=== PATIENT | female | born 1995 | race Caucasian/White ===

== ENCOUNTER → 2016-11-27 | Outpatient (REF) | payer OTHER | LOC: M LAB REF 16:07 | PROVIDERS: ATTEND Surgery | DX: D48.5 Neoplasm of uncertain behavior of skin (principal) ==

== ENCOUNTER → 2016-12-04 | Outpatient (CLI) | payer OTHER ==
[2016-12-04 11:28] LABS: BASO % 0.4 % (0.0-1.0); EOS # 0.1 K/mm3 (0.0-0.50); EOS % 1.4 % (0.0-3.0); LYMPH # 1.5 K/mm3 (1.5-6.5); LYMPH % 29.2 % (24.0-44.0); MEAN CORPUSCULAR HEMOGLOBIN 29.7 pg (27.0-33.0); MEAN CORPUSCULAR HGB CONC 33.3 g/dl (32.0-36.5); MEAN CORPUSCULAR VOLUME 89.3 fl (80.0-96.0); MONO # 0.3 K/mm3 (0.0-0.8); MONO % 5.5 % (0.0-5.0); NEUTROPHILS % 61.3 % (36.0-66.0); RED CELL DISTRIBUTION WIDTH 12.5 % (11.5-14.5); WHITE BLOOD COUNT 4.9 K/mm3 (4.0-10.0)
[2016-12-04 12:01] LABS: ALBUMIN 3.4 GM/DL (3.2-5.2); ALBUMIN/GLOBULIN RATIO 1.03 (1.00-1.93); ALKALINE PHOSPHATASE 38 U/L (45-117); ALT/SGPT 13 U/L (12-78); ANION GAP 4 MEQ/L (8-16); AST/SGOT 15 U/L (15-37); BILIRUBIN,TOTAL 0.4 MG/DL (0.2-1.0); BLOOD UREA NITROGEN 13 MG/DL (7-18); CALCIUM LEVEL 8.7 MG/DL (8.5-10.1); CARBON DIOXIDE LEVEL 30 MEQ/L (21-32); CHLORIDE LEVEL 106 MEQ/L (98-107); CREATININE FOR GFR 0.77 MG/DL (0.55-1.02); GLUCOSE, FASTING 106 MG/DL (70-105); POTASSIUM SERUM 3.6 MEQ/L (3.5-5.1); SODIUM LEVEL 140 MEQ/L (136-145); TOTAL PROTEIN 6.7 GM/DL (6.4-8.2)
--- NOTE | 2016-12-04 23:03 | ECGEPIP ---
Stationary ECG Study [facility] Test Date: 2016-12-04 Pat Name: BARRETT GUZMAN Department: Room: - Gender: F [place] [employer]: MICHELE : 1995 Requested By: Leann Gonzalez Order Number: [id number] Reading MD: Santo Funk Measurements Intervals [place] Rate: 72 P: -7 WA: 154 QRS: 44 QRSD: 90 T: 30 QT: 402 QTc: 441 Interpretive Statements SINUS RHYTHM WITH SINUS ARRHYTHMIA Early repolarization. No significant change compared with 12/13/2014. Electronically Signed On 12-04-2016 23:02:49 EDT by Santo Funk
== END ==
LOC: M LAB 11:00
PROVIDERS: ATTEND Physician Assistant Medical
DX: R00.2 Palpitations (principal)

== ENCOUNTER → 2017-04-01 | Outpatient (REF) | payer OTHER ==
[~2017-04-01] MED LIST: NORT1TAB PO; PRIL20CA9 PO; ZOLO25TA PO
== END ==
LOC: M LAB REF 16:44
PROVIDERS: ATTEND Physician Assistant
DX: J02.0 Streptococcal pharyngitis (principal)

== ENCOUNTER → 2017-04-17 | Outpatient (REF) | payer OTHER | LOC: M LAB REF 16:47 | PROVIDERS: ATTEND Physician Assistant Medical | DX: N30.01 Acute cystitis with hematuria (principal) ==

== ENCOUNTER 2017-07-12 11:51 | Emergency (ER) | payer OTHER ==
[~2017-07-12] VITALS: Ht 157.5 cm; Wt 57.3 kg
[2017-07-12 15:49] LABS: BASO % 0.4 % (0.0-1.0); EOS % 0.3 % (0.0-3.0); IMMATURE GRANULOCYTE % 0.3 % (0-0); LYMPH # 1.9 10^3/uL (1.5-6.5); LYMPH % 28.2 % (24.0-44.0); MEAN CORPUSCULAR HEMOGLOBIN 29.4 pg (27.0-33.0); MEAN CORPUSCULAR HGB CONC 33.3 g/dl (32.0-36.5); MEAN CORPUSCULAR VOLUME 88.3 fl (80.0-96.0); MONO # 0.4 10^3/uL (0.0-0.8); MONO % 5.9 % (0.0-5.0); NEUTROPHILS # 4.4 10^3/uL (1.8-7.7); NEUTROPHILS % 64.9 % (36.0-66.0); PLATELET COUNT, AUTOMATED 252 10^3/uL (150-450); RED CELL DISTRIBUTION WIDTH 11.7 % (11.5-14.5); WHITE BLOOD COUNT 6.8 10^3/uL (4.0-10.0)
[2017-07-12] MEDS ORDERED: ALPRAZolam 0.25 MG TAB PO ONE (16:00)
[2017-07-12 16:15] LABS: ERYTHROCYTE SEDIMENTATION RATE 13 mm/hr (0-20)
[2017-07-12 16:16] LABS: ALBUMIN 4.2 GM/DL (3.2-5.2); ALKALINE PHOSPHATASE 35 U/L (45-117); ALT/SGPT 19 U/L (12-78); ANION GAP 11 MEQ/L (8-16); AST/SGOT 12 U/L (7-37); BILIRUBIN,TOTAL 0.4 MG/DL (0.2-1.0); BLOOD UREA NITROGEN 11 MG/DL (7-18); CALCIUM LEVEL 9.6 MG/DL (8.5-10.1); CARBON DIOXIDE LEVEL 26 MEQ/L (21-32); CHLORIDE LEVEL 103 MEQ/L (98-107); CREATININE FOR GFR 0.64 MG/DL (0.55-1.02); GLOMERULAR FILTRATION RATE > 60.0 (>60); GLUCOSE, FASTING 82 MG/DL (70-105); POTASSIUM SERUM 4.2 MEQ/L (3.5-5.1); SODIUM LEVEL 140 MEQ/L (136-145); TOTAL PROTEIN 7.7 GM/DL (6.4-8.2)
[2017-07-12] MEDS ORDERED: XANA0.25 PO (16:48)
[2017-07-12] MEDS ORDERED: DIFL150T PO (16:52)
[2017-07-12] MEDS ORDERED: CEFD300CAP FT (16:52)
[2017-07-12] MEDS ORDERED: CEFD1CAP8 PO (17:27)
[2017-07-12 17:56] VITALS: BP 123/89
--- NOTE | 2017-07-13 07:13 | ECGEPIP ---
Stationary ECG Study [facility] - ED Test Date: 2017-07-12 Pat Name: BARRETT GUZMAN Department: Room: - Gender: F Kitchen Clerk: KIAH : 1995 Requested By: Matthew Mccarty Order Number: [id number] Reading MD: Matthew Pereira Measurements Intervals [place] Rate: 80 P: 62 UT: 152 QRS: 8 QRSD: 89 T: 34 QT: 354 QTc: 409 Interpretive Statements SINUS RHYTHM WITH SINUS ARRHYTHMIA BENIGN EARLY REPOLARIZATION SIMILAR TO 07/09/17 Electronically Signed On 07-13-2017 7:13:48 EST by Matthew Pereira
[2017-07-15 10:36] LABS: VITAMIN B12 LEVEL 638 PG/ML (247-911)
[2017-07-16 00:06] LABS: Lyme Disease IgG/IgM Antibodie <0.91 ISR (0.00-0.90); Lyme Disease IgM Ab Quantitati <0.80 index (0.00-0.79)
== END 2017-07-12 18:01 | disposition home or self-care (01) ==
LOC: M ED 11:51
DX: F41.9 Anxiety disorder, unspecified (principal); H66.93 Otitis media, unspecified, bilateral; G43.909 Migraine, unspecified, not intractable, without status migrainosus

== ENCOUNTER → 2017-07-19 | Outpatient (CLI) | payer OTHER ==
[~2017-07-19] MED LIST changes: +CEFD1CAP8 PO; +CEFD300CAP FT; +DIFL150T PO; +XANA0.25 PO
== END ==
LOC: M LAB 12:19
PROVIDERS: ATTEND Psychiatry & Neurology Neurology
DX: R51 Headache (principal)

== ENCOUNTER 2017-08-12 11:07 | Emergency (ER) | payer OTHER ==
[~2017-08-12] VITALS: Ht 157.5 cm; Wt 58.2 kg
[2017-08-12 11:08] VITALS: BP 142/93
[2017-08-12] MEDS ORDERED: NORTREL (11:21)
== END 2017-08-12 12:37 | disposition left against medical advice (07) ==
LOC: M ED 11:07
DX: Z53.29 Procedure and treatment not carried out because of patient's decision for other reasons (principal)

== ENCOUNTER 2018-01-24 14:03 | Emergency (ER) | payer OTHER ==
[2018-01-24] MEDS: NS 1,000 ML IV (19:00)
[2018-01-24 20:08] LABS: BASO % 0.5 % (0.0-1.0); EOS # 0.1 10^3/uL (0.0-0.50); EOS % 0.8 % (0.0-3.0); HEMATOCRIT 39.7 % (36.0-47.0); HEMOGLOBIN 13.2 g/dl (12.0-15.5); IMMATURE GRANULOCYTE % 0.3 % (0-3.0); LYMPH # 2.5 10^3/uL (1.5-6.5); LYMPH % 41.3 % (24.0-44.0); MEAN CORPUSCULAR HGB CONC 33.2 g/dl (32.0-36.5); MEAN CORPUSCULAR VOLUME 87.3 fl (80.0-96.0); MONO # 0.3 10^3/uL (0.0-0.8); MONO % 4.9 % (0.0-5.0); NEUTROPHILS # 3.1 10^3/uL (1.8-7.7); NEUTROPHILS % 52.2 % (36.0-66.0); PLATELET COUNT, AUTOMATED 221 10^3/uL (150-450); RED BLOOD COUNT 4.55 10^6/uL (4.00-5.40); WHITE BLOOD COUNT 5.9 10^3/uL (4.0-10.0)
[2018-01-24 20:32] LABS: CONTROL LINE HCG INT CTR LINE PRESENT; HCG, SERUM QUALITATIVE NEGATIVE (NEGATIVE)
[2018-01-24 20:41] LABS: ALBUMIN 4.1 GM/DL (3.2-5.2); ALBUMIN/GLOBULIN RATIO 1.11 (1.00-1.93); ALKALINE PHOSPHATASE 31 U/L (45-117); ALT/SGPT 16 U/L (12-78); ANION GAP 8 MEQ/L (8-16); AST/SGOT 14 U/L (7-37); BILIRUBIN,DIRECT 0.1 MG/DL (0.0-0.2); BILIRUBIN,TOTAL 0.4 MG/DL (0.2-1.0); BLOOD UREA NITROGEN 10 MG/DL (7-18); C REACTIVE PROTEIN QUANTITATIV 0.31 MG/DL (0.00-0.30); CALCIUM LEVEL 8.8 MG/DL (8.5-10.1); CARBON DIOXIDE LEVEL 26 MEQ/L (21-32); CHLORIDE LEVEL 107 MEQ/L (98-107); CPK CREATINE PHOSPHOKINASE 75 U/L (26-192); CREATININE FOR GFR 0.65 MG/DL (0.55-1.30); GLOMERULAR FILTRATION RATE > 60.0 (>60); GLUCOSE, FASTING 91 MG/DL (70-100); LIPASE 114 U/L (73-393); POTASSIUM SERUM 3.6 MEQ/L (3.5-5.1); SODIUM LEVEL 141 MEQ/L (136-145); TOTAL PROTEIN 7.8 GM/DL (6.4-8.2); TROPONIN I < 0.02 NG/ML (< 0.10)
[2018-01-24 20:47] LABS: CK-MB VALUE MASS < 1.0 NG/ML (<3.6); FREE T4 1.22 NG/DL (0.76-1.46); MB/CK RELATIVE INDEX 1.33 (< OR =4)
== END 2018-01-24 21:31 | disposition home or self-care (01) ==
LOC: M ED 14:03
DX: F41.9 Anxiety disorder, unspecified (principal); K21.9 Gastro-esophageal reflux disease without esophagitis; Z83.49 Family history of other endocrine, nutritional and metabolic diseases; Z79.3 Long term (current) use of hormonal contraceptives; Z79.899 Other long term (current) drug therapy; Z86.69 Personal history of other diseases of the nervous system and sense organs
CPT/HCPCS: 93005

== ENCOUNTER 2018-09-09 12:33 | Emergency (ER) | payer OTHER ==
[~2018-09-09] VITALS: Ht 157.5 cm; Wt 56.8 kg
[~2018-09-09 12:33] MED LIST changes: +NORTREL; +NUVAMIS2; +RANI150T
[2018-09-09] MEDS ORDERED: ALPR0.25 (12:49)
[2018-09-09] MEDS ORDERED: SERT25TA88 PO (12:49)
[2018-09-09 13:19] LABS: BASO % 0.2 % (0.0-1.0); EOS # 0.1 10^3/uL (0.0-0.50); EOS % 0.9 % (0.0-3.0); HEMATOCRIT 37.5 % (36.0-47.0); HEMOGLOBIN 12.5 g/dl (12.0-15.5); LYMPH # 2.1 10^3/uL (1.5-6.5); LYMPH % 38.8 % (24.0-44.0); MEAN CORPUSCULAR HEMOGLOBIN 29.2 pg (27.0-33.0); MEAN CORPUSCULAR HGB CONC 33.3 g/dl (32.0-36.5); MEAN CORPUSCULAR VOLUME 87.6 fl (80.0-96.0); MONO # 0.4 10^3/uL (0.0-0.8); MONO % 6.6 % (0.0-5.0); NEUTROPHILS # 2.8 10^3/uL (1.8-7.7); NEUTROPHILS % 53.3 % (36.0-66.0); PLATELET COUNT, AUTOMATED 221 10^3/uL (150-450); RED BLOOD COUNT 4.28 10^6/uL (4.00-5.40); WHITE BLOOD COUNT 5.3 10^3/uL (4.0-10.0)
[2018-09-09 13:42] LABS: ALT/SGPT 15 U/L (12-78); BILIRUBIN,TOTAL 0.4 MG/DL (0.2-1.0); BLOOD UREA NITROGEN 14 MG/DL (7-18); CALCIUM LEVEL 9.2 MG/DL (8.5-10.1); CARBON DIOXIDE LEVEL 28 MEQ/L (21-32); CHLORIDE LEVEL 105 MEQ/L (98-107); CREATININE FOR GFR 0.62 MG/DL (0.55-1.30); GLOMERULAR FILTRATION RATE > 60.0 (>60); GLUCOSE, FASTING 93 MG/DL (70-100); POTASSIUM SERUM 3.9 MEQ/L (3.5-5.1); SODIUM LEVEL 138 MEQ/L (136-145)
[2018-09-09 13:59] VITALS: BP 118/71
[2018-09-09 14:14] LABS: HCG, SERUM QUALITATIVE NEGATIVE (NEGATIVE)
[2018-09-10 09:43] LABS: HEPATITIS B SURFACE ANTIBODY NEGATIVE (POSITIVE)
[2018-09-10 09:54] LABS: HEPATITIS B SURFACE ANTIGEN NEGATIVE (NEGATIVE)
[2018-09-10 10:22] LABS: HEPATITIS C VIRUS ABY INDEX 0.1 INDEX (<0.8)
== END 2018-09-09 14:32 | disposition home or self-care (01) ==
LOC: M ED 12:33
DX: Z77.21 Contact with and (suspected) exposure to potentially hazardous body fluids (principal); K21.9 Gastro-esophageal reflux disease without esophagitis; F41.9 Anxiety disorder, unspecified; G43.909 Migraine, unspecified, not intractable, without status migrainosus; Z79.899 Other long term (current) drug therapy

== ENCOUNTER → 2018-09-26 | Outpatient (REF) | payer OTHER ==
[~2018-09-26] MED LIST changes: +ALPR0.25; +SERT25TA88 PO
== END ==
LOC: M LAB REF 15:54
PROVIDERS: ATTEND Physician Assistant
DX: N39.0 Urinary tract infection, site not specified (principal)

== ENCOUNTER → 2018-10-29 | Outpatient (REF) | payer OTHER ==
[2018-10-29 22:41] LABS: CHLAMYDIA DNA AMPLIFICATION NEGATIVE (NEGATIVE); GC DNA AMPLIFICATION NEGATIVE (NEGATIVE)
== END ==
LOC: M LAB REF 16:28
PROVIDERS: ATTEND Physician Assistant
DX: R30.0 Dysuria (principal)

== ENCOUNTER → 2018-11-13 | Outpatient (CLI) | payer OTHER ==
--- NOTE | 2018-11-13 17:59 | REP ---
Pelvic ultrasound, stat request: The studies performed transabdominal, endovaginal Doppler ultrasound assessment: Comparison is 01/10/2018. The bladder is adequately distended. The uterus is anteverted and normal size measuring 7.2 x 2.7 x 4.0 cm. The endometrium stripe is not thickened measuring up to 6.5 mm. Right ovary: The right ovary measures 2.3 x 1.4-0.6 cm and is normal size. There is a 0.7 cm right ovarian follicle with an echogenic wall, not present previously, however the echogenic wall is somewhat unusual for follicle. Therefore, I would recommend a follow-up pelvic ultrasound after two menstrual cycles to determine whether this is persistent or transient. There is vascular flow in the right ovary with the Doppler resistive index of the parenchymal arteries measuring 0.53. Left ovary: The left ovary measures 2.8 x 1.9 x 2.6 cm and is normal size. There is a para ovarian cyst measuring 0.8 x 0.6 x 0.9 cm. There is no free fluid in the pelvis. Impression: There is vascular flow in both ovaries. There is a right ovarian 0.7 cm cyst with an echogenic wall of uncertain significance. Therefore, I would recommend follow-up pelvic ultrasound after two menstrual cycles to determine whether this is transient or persistent. There is a 0.9 cm left adnexal paraovarian cyst. Electronically Signed by Danny Dhaliwal MD 11/13/2018 05:51 P
[2018-11-13 19:03] LABS: BLOOD UREA NITROGEN 12 MG/DL (7-18); CALCIUM LEVEL 8.6 MG/DL (8.5-10.1); CARBON DIOXIDE LEVEL 25 MEQ/L (21-32); CHLORIDE LEVEL 105 MEQ/L (98-107); CREATININE FOR GFR 0.66 MG/DL (0.55-1.30); GLOMERULAR FILTRATION RATE > 60.0 (>60); GLUCOSE, FASTING 74 MG/DL (70-100); POTASSIUM SERUM 3.7 MEQ/L (3.5-5.1); SODIUM LEVEL 137 MEQ/L (136-145)
[2018-11-13 19:35] LABS: BASO % 0.3 % (0.0-1.0); EOS # 0.1 10^3/uL (0.0-0.50); EOS % 1.1 % (0.0-3.0); HEMATOCRIT 37.3 % (36.0-47.0); HEMOGLOBIN 12.2 g/dl (12.0-15.5); LYMPH # 2.2 10^3/uL (1.5-6.5); LYMPH % 34.5 % (24.0-44.0); MEAN CORPUSCULAR HEMOGLOBIN 29.5 pg (27.0-33.0); MEAN CORPUSCULAR HGB CONC 32.7 g/dl (32.0-36.5); MEAN CORPUSCULAR VOLUME 90.1 fl (80.0-96.0); MONO # 0.4 10^3/uL (0.0-0.8); MONO % 5.4 % (0.0-5.0); NEUTROPHILS # 3.8 10^3/uL (1.8-7.7); NEUTROPHILS % 58.5 % (36.0-66.0); PLATELET COUNT, AUTOMATED 241 10^3/uL (150-450); RED BLOOD COUNT 4.14 10^6/uL (4.00-5.40); WHITE BLOOD COUNT 6.4 10^3/uL (4.0-10.0)
== END ==
LOC: M RAD 16:43
PROVIDERS: ATTEND Physician Assistant
DX: N83.201 Unspecified ovarian cyst, right side (principal); N83.292 Other ovarian cyst, left side

== ENCOUNTER → 2018-11-13 | Outpatient (REF) | payer OTHER | LOC: M LAB REF 19:11 | PROVIDERS: ATTEND Physician Assistant | DX: R10.32 Left lower quadrant pain (principal) ==

== ENCOUNTER → 2018-11-26 | Outpatient (REF) | payer OTHER ==
[2018-12-02 14:53] LABS: HPV HYBRID CAPTURE II Negative (Negative)
== END ==
LOC: M LAB REF 17:20
PROVIDERS: ATTEND Advanced Practice Midwife
DX: Z12.4 Encounter for screening for malignant neoplasm of cervix (principal); R87.610 Atypical squamous cells of undetermined significance on cytologic smear of cervix (ASC-US)

== ENCOUNTER → 2019-01-23 | Outpatient (REF) | LOC: M LAB 08:54 | PROVIDERS: ATTEND Nurse Practitioner Adult Health | DX: Z11.59 Encounter for screening for other viral diseases (principal) ==

== ENCOUNTER 2019-05-12 07:03 | Emergency (ER) | payer OTHER ==
[~2019-05-12] VITALS: Ht 157.5 cm; Wt 56.8 kg
[2019-05-12] MEDS ORDERED: LIDOCAINE 2% W/ EPINEPHRINE 1.7 ML DENTAL INJ SM ONE (07:30)
[2019-05-12] MEDS ORDERED: BENZOCAINE 20% GEL 9GM TUBE (ANBESOL MAX STRENGTH) TOP ONE (07:30)
[2019-05-12] MEDS ORDERED: AUGM875T28 PO (08:27)
[2019-05-12 08:38] VITALS: BP 133/72
== END 2019-05-12 08:50 | disposition home or self-care (01) ==
LOC: M ED 07:03
DX: K04.7 Periapical abscess without sinus (principal); G93.5 Compression of brain; Z79.3 Long term (current) use of hormonal contraceptives

== ENCOUNTER → 2020-03-02 | Outpatient (REF) | payer OTHER ==
[~2020-03-02] MED LIST changes: +AUGM875T28 PO; +SERT25TA21 PO; -SERT25TA88 PO
== END ==
LOC: M SFHCWAGY 10:13
PROVIDERS: ATTEND Advanced Practice Midwife
DX: Z12.4 Encounter for screening for malignant neoplasm of cervix (principal); R87.610 Atypical squamous cells of undetermined significance on cytologic smear of cervix (ASC-US)
CPT/HCPCS: 87624; G0123

== ENCOUNTER → 2020-08-15 | Outpatient (REF) | payer OTHER | LOC: M LAB REF 20:25 | PROVIDERS: ATTEND Advanced Practice Midwife | DX: R30.0 Dysuria (principal) ==

== ENCOUNTER → 2020-12-01 | Outpatient (CLI) | payer OTHER ==
--- NOTE | 2020-12-01 09:20 | REP ---
INDICATION: N63.0 LT BREAST NODULE. COMPARISON: None TECHNIQUE: Real-time sonographic evaluation of left breast performed. FINDINGS: At the site of the reported palpable abnormality, 12-1 o'clock, there is dense fibroglandular tissue. No discrete cystic or solid nodule is seen. IMPRESSION: BIRADS/ACR category 1, negative ultrasound left breast. No discrete cystic or solid nodule at the site of the reported palpable abnormality 12-1 o'clock left breast. RECOMMENDATION: Clinical correlation and follow-up recommended. A negative ultrasound should not deter biopsy if there is a clinically suspicious palpable mass present. <Electronically signed by Danny Liu > 12/01/20 0914
== END ==
LOC: M WHC 07:23
PROVIDERS: ATTEND Advanced Practice Midwife
DX: R92.2 Inconclusive mammogram (principal)

== ENCOUNTER → 2021-02-24 | Outpatient (REF) | LOC: M LABSMTC 13:45 | PROVIDERS: ATTEND Pediatrics | DX: Z20.822 Contact with and (suspected) exposure to COVID-19 (principal) ==

== ENCOUNTER → 2021-03-23 | Outpatient (REF) | payer OTHER ==
[2021-03-23 17:01] LABS: FREE T4 0.99 NG/DL (0.76-1.46); THYROID STIMULATING HORMONE 2.29 uIU/ML (0.358-3.740)
== END ==
LOC: M SFHCCLAY 09:25
PROVIDERS: ATTEND Family Medicine
DX: Z00.00 Encounter for general adult medical examination without abnormal findings (principal); Z83.49 Family history of other endocrine, nutritional and metabolic diseases

== ENCOUNTER → 2021-10-02 | Outpatient (REF) ==
[~2021-10-02] MED LIST changes: -CEFD1CAP8 PO; +CEFD300C41 PO
== END ==
LOC: M LABSMTC 11:18
PROVIDERS: ATTEND Family Medicine
DX: Z11.52 Encounter for screening for COVID-19 (principal); Z20.822 Contact with and (suspected) exposure to COVID-19

== ENCOUNTER → 2021-11-13 | Outpatient (REF) | LOC: M EMP 12:19 | PROVIDERS: ATTEND Family Medicine | DX: Z20.822 Contact with and (suspected) exposure to COVID-19 (principal) ==

== ENCOUNTER → 2021-11-17 | Outpatient (REF) | LOC: M EMP 13:29 | PROVIDERS: ATTEND Family Medicine | DX: Z20.822 Contact with and (suspected) exposure to COVID-19 (principal) ==

== ENCOUNTER → 2022-03-20 | Outpatient (REF) | payer BC ==
[2022-03-20 16:05] LABS: MEAN CORPUSCULAR HEMOGLOBIN 28.6 pg (27.0-33.0); MEAN CORPUSCULAR HGB CONC 32.5 g/dl (32.0-36.5); MEAN CORPUSCULAR VOLUME 88.1 fl (80.0-96.0); PLATELET COUNT, AUTOMATED 417 10^3/uL (150-450); RED BLOOD COUNT 4.54 10^6/uL (4.00-5.40); WHITE BLOOD COUNT 10.2 10^3/uL (4.0-10.0)
[2022-03-20 16:54] LABS: ALBUMIN 3.1 GM/DL (3.2-5.2); ALT/SGPT 34 U/L (12-78); BILIRUBIN,TOTAL 0.2 MG/DL (0.2-1.0); BLOOD UREA NITROGEN 8 MG/DL (7-18); CALCIUM LEVEL 9.1 MG/DL (8.5-10.1); CARBON DIOXIDE LEVEL 26 MEQ/L (21-32); CHLORIDE LEVEL 108 MEQ/L (98-107); GLOMERULAR FILTRATION RATE > 60.0 (>60); GLUCOSE, FASTING 118 MG/DL (70-100); POTASSIUM SERUM 3.8 MEQ/L (3.5-5.1); SODIUM LEVEL 141 MEQ/L (136-145); TOTAL PROTEIN 6.6 GM/DL (6.4-8.2)
== END ==
LOC: M SFHCCLAY 10:43
PROVIDERS: ATTEND Nurse Practitioner Family
DX: K51.00 Ulcerative (chronic) pancolitis without complications (principal); E87.6 Hypokalemia

== ENCOUNTER → 2022-06-27 | Outpatient (CLI) | payer BC ==
[2022-06-27 16:19] LABS: HEMATOCRIT 38.3 % (36.0-47.0); HEMOGLOBIN 12.8 g/dl (12.0-15.5); MEAN CORPUSCULAR HEMOGLOBIN 29.6 pg (27.0-33.0); MEAN CORPUSCULAR HGB CONC 33.4 g/dl (32.0-36.5); MEAN CORPUSCULAR VOLUME 88.5 fl (80.0-96.0); PLATELET COUNT, AUTOMATED 232 10^3/uL (150-450); RED BLOOD COUNT 4.33 10^6/uL (4.00-5.40)
[2022-06-27 17:43] LABS: GC DNA AMPLIFICATION NEGATIVE (NEGATIVE)
[2022-06-27 19:46] LABS: HEPATITIS B SURFACE ANTIGEN NEGATIVE (NEGATIVE); HEPATITIS C VIRUS ABY INDEX < 0.0 INDEX (<0.8)
== END ==
LOC: M PLALAB 13:58
PROVIDERS: ATTEND Advanced Practice Midwife
DX: O99.341 Other mental disorders complicating pregnancy, first trimester (principal)

== ENCOUNTER → 2022-07-04 | Outpatient (CLI) | payer BC | LOC: M PLALAB 09:53 | PROVIDERS: ATTEND Advanced Practice Midwife | DX: Z34.80 Encounter for supervision of other normal pregnancy, unspecified trimester (principal); Z3A.00 Weeks of gestation of pregnancy not specified ==

== ENCOUNTER → 2022-07-19 | Outpatient (CLI) | payer BC | LOC: M WHC 13:06 | PROVIDERS: ATTEND Advanced Practice Midwife | DX: O20.0 Threatened abortion (principal); Z3A.13 13 weeks gestation of pregnancy ==

== ENCOUNTER → 2022-08-22 | Outpatient (CLI) | payer BC | LOC: M PLALAB 14:44 | PROVIDERS: ATTEND Advanced Practice Midwife | DX: Z36.8A Encounter for antenatal screening for other genetic defects (principal) ==

== ENCOUNTER → 2022-09-05 | Outpatient (CLI) | payer BC | LOC: M RAD 09:15 | PROVIDERS: ATTEND Advanced Practice Midwife | DX: O99.342 Other mental disorders complicating pregnancy, second trimester (principal) ==

== ENCOUNTER → 2022-10-03 | Outpatient (REF) | payer BC ==
[2022-10-03 18:18] LABS: ALBUMIN 2.7 G/DL (3.2-5.2); ALKALINE PHOSPHATASE 45 U/L (46-116); ALT/SGPT 16 U/L (7.0-40); AST/SGOT 17 U/L (<34); BILIRUBIN,TOTAL 0.3 MG/DL (0.3-1.2); BLOOD UREA NITROGEN 8 MG/DL (9-23); CALCIUM LEVEL 8.5 MG/DL (8.5-10.1); CARBON DIOXIDE LEVEL 24 MMOL/L (20-31); CHLORIDE LEVEL 106 MMOL/L (98-107); CREATININE FOR GFR 0.48 MG/DL (0.55-1.30); GLOMERULAR FILTRATION RATE > 60.0 (>60); GLUCOSE, FASTING 85 MG/DL (60-100); SODIUM LEVEL 138 MMOL/L (136-145); TOTAL PROTEIN 5.8 G/DL (5.7-8.2)
== END ==
LOC: M SFHCCLAY 10:40
PROVIDERS: ATTEND Nurse Practitioner Family
DX: R74.8 Abnormal levels of other serum enzymes (principal)

== ENCOUNTER → 2022-10-17 | Outpatient (CLI) | payer BC ==
[2022-10-17 15:30] LABS: HEMATOCRIT 33.8 % (36.0-47.0); HEMOGLOBIN 10.8 g/dl (12.0-15.5); MEAN CORPUSCULAR VOLUME 93.9 fl (80.0-96.0); PLATELET COUNT, AUTOMATED 218 10^3/uL (150-450)
== END ==
LOC: M PLALAB 11:12
PROVIDERS: ATTEND Advanced Practice Midwife
DX: O99.342 Other mental disorders complicating pregnancy, second trimester (principal)

== ENCOUNTER 2022-11-19 17:55 | Outpatient (CLI) | payer BC ==
[~2022-11-19] VITALS: Ht 154.9 cm; Wt 73.4 kg
[2022-11-19] MEDS ORDERED: FOLI400T13 PO (18:14)
[2022-11-19] MEDS ORDERED: PRENTAB9 PO (18:14)
[2022-11-19] MEDS ORDERED: MAGN300C PO (18:14)
[2022-11-19] MEDS ORDERED: HOME MED LIST COMPLETE! XX SCH (18:15)
[2022-11-19 18:20] VITALS: BP 121/79
[2022-11-19 19:07] LABS: APPEARANCE, URINE HAZY (CLEAR); BACTERIA, URINE AUTO 1+ (NEGATIVE); BILIRUBIN, URINE AUTO NEGATIVE (NEGATIVE); BLOOD, URINE BLOOD NEGATIVE (NEGATIVE); COLOR, URINE YELLOW (YELLOW); GLUCOSE, URINE (UA) AUTO NEGATIVE (NEGATIVE); KETONE, URINE AUTO NEGATIVE (NEGATIVE); LEUKOCYTE ESTERASE, URINE AUTO 1+ (NEGATIVE); NITRITE, URINE AUTO NEGATIVE (NEGATIVE); PROTEIN, URINE AUTO NEGATIVE (NEGATIVE); RBC, URINE AUTO 1 /HPF (0-3); SPECIFIC GRAVITY URINE AUTO 1.011 (1.002-1.035); SQUAMOUS EPITHELIAL CELL UR AU 1 /HPF (0-6); UROBILINOGEN, URINE AUTO 0.2 mg/dL (0.0-2.0); WBC, URINE AUTO 2 /HPF (0-3)
[2022-11-19] MEDS ORDERED: FLUCONAZOLE 50MG TABLET PO ONE (20:20)
[2022-11-19] MEDS ORDERED: METR0.759 PV (20:24)
[2022-11-19 20:28] VITALS: BP 118/61
== END 2022-11-19 20:24 | disposition home or self-care (01) ==
LOC: M LDO 17:55
PROVIDERS: ATTEND Advanced Practice Midwife
DX: O23.593 Infection of other part of genital tract in pregnancy, third trimester (principal); B37.9 Candidiasis, unspecified; O47.03 False labor before 37 completed weeks of gestation, third trimester; Z3A.30 30 weeks gestation of pregnancy
CPT/HCPCS: 59025; 76815; 76817; 76820; 81001; 87070; 87086; G0463

== ENCOUNTER → 2023-01-03 | Outpatient (REF) | payer BC ==
[~2023-01-03] MED LIST changes: +ETON1VAG7; +FOLI400T13 PO; +MAGN300C PO; +METR0.759 PV; -NUVAMIS2; +PRENTAB9 PO
== END ==
LOC: M SFHCWAGY 16:59
PROVIDERS: ATTEND Obstetrics & Gynecology
DX: Z34.03 Encounter for supervision of normal first pregnancy, third trimester (principal)

== ENCOUNTER 2023-01-26 20:47 | Inpatient (IN) | payer BC ==
[~2023-01-26] VITALS: Ht 154.9 cm; Wt 82.0 kg
[2023-01-26 21:04] VITALS: BP 126/78
[2023-01-26] MEDS ORDERED: HOME MED LIST COMPLETE! XX SCH (21:15)
[2023-01-26] MEDS ORDERED: LACTATED RINGER'S 1000 ML IV STA (21:49)
[2023-01-26] MEDS ORDERED: METHYLERGONOVINE MALEATE 0.2MG/ML 1ML VIAL IM PRN (21:50)
[2023-01-26] MEDS ORDERED: CARBOPROST TROMETHAMINE 250 MCG/ML AMP IM PRN (21:50)
[2023-01-26] MEDS ORDERED: LIDOCAINE 1% MDV 20ML VIAL INFIL PRN (21:50)
[2023-01-26] MEDS ORDERED: OXYTOCIN DRIP 30 UNITS in IV 1 EA IV PRN (21:50)
[2023-01-26] MEDS ORDERED: OXYTOCIN INJ 10UNITS/ML 1ML VIAL IM PRN (21:50)
[2023-01-26] MEDS ORDERED: TRANEXAMIC ACID INJection 1,000 MG in NS 100 ML IV PRN (21:50)
[2023-01-26] MEDS: miSOPROStol 50MCG 1/2 TABLET PO SCH (23:10)
[2023-01-26 23:14] VITALS: BP 122/87
[2023-01-26 23:19] LABS: HEMATOCRIT 38.5 % (36.0-47.0); HEMOGLOBIN 12.5 g/dl (12.0-15.5); MEAN CORPUSCULAR HEMOGLOBIN 29.2 pg (27.0-33.0); MEAN CORPUSCULAR HGB CONC 32.5 g/dl (32.0-36.5); PLATELET COUNT, AUTOMATED 173 10^3/uL (150-450); RED BLOOD COUNT 4.28 10^6/uL (4.00-5.40); WHITE BLOOD COUNT 10.2 10^3/uL (4.0-10.0)
[2023-01-27] VITALS (58 sets, daily range): BP systolic 95–146; BP diastolic 53–90
[2023-01-27 00:18] LABS: HIV 1&2 SCREEN NEGATIVE (NEGATIVE)
[2023-01-27] MEDS: miSOPROStol 50MCG 1/2 TABLET PO SCH (04:19)
[2023-01-27] MEDS ORDERED: PROMETHAZINE 25MG/ML 1ML VIAL IV ONE (05:00)
[2023-01-27] MEDS ORDERED: MORPHINE 10 MG/ML 1ML VIAL SC ONE (05:30)
[2023-01-27] MEDS ORDERED: MORPHINE 4 MG/ML 1ML VIAL IV ONE (05:30)
[2023-01-27] MEDS ORDERED: FENTANYL/ROPIVACAINE/NACL BAG 100 ML EPIDURAL SCH (11:10)
[2023-01-27] MEDS ORDERED: LR 500 ML IV PRN (11:10)
[2023-01-27] MEDS ORDERED: diphenhydrAMINE 50MG/ML VIAL IV PRN (11:10)
[2023-01-27] MEDS ORDERED: EPIDURAL/PCA KEYS XX PRN (11:10)
[2023-01-27] MEDS ORDERED: ONDANSETRON 4MG 2ML VIAL IV PRN (11:10)
[2023-01-27] MEDS ORDERED: ePHEDrine SULFATE 25 MG/5 ML(5MG/ML) SYRINGE IVP PRN (11:10)
[2023-01-27] MEDS ORDERED: NALOXONE INJ 0.4MG/1ML VIAL IV PRN (11:10)
[2023-01-27] MEDS ORDERED: OXYTOCIN DRIP 30 UNITS in IV 1 EA IV SCH (12:05)
[2023-01-27] MEDS ORDERED: LR 1,000 ML IV SCH (12:05)
[2023-01-27] MEDS ORDERED: IBUPROFEN 600MG TAB PO PRN (20:00)
[2023-01-27] MEDS ORDERED: METHYLERGONOVINE MALEATE 0.2 MG TAB PO PRN (20:00)
[2023-01-27] MEDS ORDERED: ACETAMINOPHEN TAB 650MG DOSE (2X325MG) PO PRN (20:00)
[2023-01-27] MEDS ORDERED: ANUSOL HC CREAM 30GM TOP PRN (20:00)
[2023-01-27] MEDS ORDERED: AMPICILLIN SOD/SULBACTAM SOD 3 GM in D5W MINI-BAG PLUS 100 ML IV ONE (20:00)
[2023-01-27] MEDS ORDERED: RHOGAM 300MCG (1500IU) INJ IM SCH (20:00)
[2023-01-27] MEDS ORDERED: MOM 30ML SUSPENSION UDC PO PRN (20:00)
[2023-01-27] MEDS ORDERED: DIBUCAINE 1% OINTMENT 30GM TOP PRN (20:00)
[2023-01-27] MEDS ORDERED: DOCUSATE SODIUM 100MG CAPSULE PO PRN (20:00)
[2023-01-28] MEDS: IBUPROFEN 800 MG TAB PO PRN ×2 (02:28→15:52)
[2023-01-28 06:14] VITALS: BP 132/68
[2023-01-28 06:29] LABS: HEMOGLOBIN 10.7 g/dl (12.0-15.5); MEAN CORPUSCULAR HEMOGLOBIN 29.6 pg (27.0-33.0); MEAN CORPUSCULAR HGB CONC 32.4 g/dl (32.0-36.5); MEAN CORPUSCULAR VOLUME 91.4 fl (80.0-96.0); PLATELET COUNT, AUTOMATED 133 10^3/uL (150-450); RED BLOOD COUNT 3.61 10^6/uL (4.00-5.40); WHITE BLOOD COUNT 14.2 10^3/uL (4.0-10.0)
[2023-01-28] MEDS: PRENATAL VITAMINS CHEWABLE TABLET PO SCH (08:47)
[2023-01-28] MEDS: ACETAMINOPHEN 500 MG TAB PO PRN ×2 (08:48→20:55)
[2023-01-28 18:00] VITALS: BP 124/86
[2023-01-29] MEDS: IBUPROFEN 800 MG TAB PO PRN (04:11)
[2023-01-29 06:00] VITALS: BP 127/83
[2023-01-29] MEDS: PRENATAL VITAMINS CHEWABLE TABLET PO SCH (08:53)
[2023-01-29] MEDS: ACETAMINOPHEN 500 MG TAB PO PRN (08:57)
[2023-01-29] MEDS ORDERED: MEASLES,MUMPS,RUBELLA VACCINE INJ (MMR-II) SC.IMMUN ONE (09:00)
[2023-01-29] MEDS ORDERED: ACET-683 PO (09:41)
[2023-01-29] MEDS ORDERED: COLA100C5 PO (09:41)
[2023-01-29] MEDS ORDERED: IBUP-1022 PO (09:41)
== END 2023-01-29 13:15 | disposition home or self-care (01) | DRG 560 ==
LOC: M LDO 20:47 → M LDI 21:52 → M OBS 01-27 22:39
PROVIDERS: ADMIT Advanced Practice Midwife; ATTEND Advanced Practice Midwife
PROC: 3E033VJ Introduction of Other Hormone into Peripheral Vein, Percutaneous Approach (ICD-10-PCS; 2023-01-26)
PROC: 10E0XZZ Delivery of Products of Conception, External Approach (ICD-10-PCS; principal; 2023-01-27)
PROC: 0KQM0ZZ Repair Perineum Muscle, Open Approach (ICD-10-PCS; 2023-01-27)
PROC: 10907ZC Drainage of Amniotic Fluid, Therapeutic from Products of Conception, Via Natural or Artificial Opening (ICD-10-PCS; 2023-01-27)
DX: O99.344 Other mental disorders complicating childbirth (principal); F41.9 Anxiety disorder, unspecified; Z3A.39 39 weeks gestation of pregnancy; Z79.899 Other long term (current) drug therapy; O70.1 Second degree perineal laceration during delivery; Z37.0 Single live birth

== ENCOUNTER → 2023-04-26 | Outpatient (CLI) | payer BC ==
[~2023-04-26] MED LIST changes: +ACET-683 PO; +COLA100C5 PO; +IBUP-1022 PO
== END ==
LOC: M WHC 09:05
PROVIDERS: ATTEND Advanced Practice Midwife
DX: R10.13 Epigastric pain (principal)

== ENCOUNTER → 2023-09-26 | Outpatient (CLI) | payer BC ==
[~2023-09-26] MED LIST changes: +CEFD1CAP9 PO; -CEFD300C41 PO
== END ==
LOC: M RAD 15:12
PROVIDERS: ATTEND Advanced Practice Midwife
DX: Z30.431 Encounter for routine checking of intrauterine contraceptive device (principal); N85.4 Malposition of uterus

== ENCOUNTER 2023-10-31 16:49 | Emergency (ER) | payer BC ==
[~2023-10-31] VITALS: Ht 154.9 cm; Wt 69.9 kg
[2023-10-31] MEDS ORDERED: CARA1TAB6 PO (16:55)
[2023-10-31] MEDS ORDERED: TUMS500C PO (16:55)
[2023-10-31] MEDS ORDERED: MIREIUD (16:57)
[2023-10-31 18:01] LABS: BASO % 0.4 % (0.0-1.0); EOS # 0.1 10^3/uL (0.0-0.5); HEMOGLOBIN 14.4 g/dl (12.0-15.5); LYMPH # 2.3 10^3/uL (1.5-5.0); LYMPH % 34.1 % (24.0-44.0); MEAN CORPUSCULAR HEMOGLOBIN 29.8 pg (27.0-33.0); MEAN CORPUSCULAR HGB CONC 32.7 g/dl (32.0-36.5); MEAN CORPUSCULAR VOLUME 90.9 fl (80.0-96.0); MONO # 0.3 10^3/uL (0.0-0.8); MONO % 4.7 % (2.0-8.0); NEUTROPHILS # 4.1 10^3/uL (1.5-8.5); NEUTROPHILS % 59.5 % (36.0-66.0); PLATELET COUNT, AUTOMATED 261 10^3/uL (150-450); RED BLOOD COUNT 4.84 10^6/uL (4.00-5.40); WHITE BLOOD COUNT 6.9 10^3/uL (4.0-10.0)
[2023-10-31 18:17] LABS: D-DIMER QUANT < 0.27 ug/mL (<0.5); INR 1.15; PARTIAL THROMBOPLASTIN TIME 27.3 SECONDS (24.8-34.2); PROTHROMBIN TIME 14.4 SECONDS (12.5-14.5)
[2023-10-31 18:25] LABS: CK-MB VALUE MASS < 1.0 NG/ML (<3.6)
[2023-10-31 18:33] LABS: CPK CREATINE PHOSPHOKINASE 84 U/L (34-145); MB/CK RELATIVE INDEX 1.19 (< OR =4)
[2023-10-31 19:13] VITALS: BP 107/67; TEMP 98; O2SAT 100
[2023-10-31] MEDS: KETOROLAC 30 MG/ML 1ML VIAL IV ONE (19:45)
== END 2023-10-31 20:14 | disposition home or self-care (01) ==
LOC: M ED 16:49
DX: M94.0 Chondrocostal junction syndrome [Tietze] (principal); R07.9 Chest pain, unspecified; F41.9 Anxiety disorder, unspecified; Z79.1 Long term (current) use of non-steroidal anti-inflammatories (NSAID); Z79.899 Other long term (current) drug therapy

== ENCOUNTER → 2024-04-17 | Outpatient (REF) | payer BC ==
[~2024-04-17] MED LIST changes: +CARA1TAB6 PO; -METR0.759 PV; +METR70GE8 PV; +MIREIUD; +TUMS500C PO
== END ==
LOC: M PLALAB 11:34
PROVIDERS: ATTEND Advanced Practice Midwife
DX: Z12.4 Encounter for screening for malignant neoplasm of cervix (principal)

== ENCOUNTER → 2024-10-05 | Outpatient (REF) | payer BC ==
[2024-10-05 17:50] LABS: BASO % 0.4 % (0.0-1.0); EOS # 0.1 10^3/uL (0.0-0.5); EOS % 1.6 % (0.0-3.0); HEMATOCRIT 38.3 % (36.0-47.0); HEMOGLOBIN 12.7 g/dl (12.0-15.5); LYMPH # 1.7 10^3/uL (1.5-5.0); LYMPH % 32.5 % (24.0-44.0); MEAN CORPUSCULAR HGB CONC 33.2 g/dl (32.0-36.5); MEAN CORPUSCULAR VOLUME 90.3 fl (80.0-96.0); MONO # 0.4 10^3/uL (0.0-0.8); MONO % 8.2 % (2.0-8.0); NEUTROPHILS # 2.9 10^3/uL (1.5-8.5); NEUTROPHILS % 57.1 % (36.0-66.0); PLATELET COUNT, AUTOMATED 228 10^3/uL (150-450); RED BLOOD COUNT 4.24 10^6/uL (4.00-5.40); WHITE BLOOD COUNT 5.1 10^3/uL (4.0-10.0)
[2024-10-05 18:19] LABS: ALBUMIN 3.9 G/DL (3.2-5.2); ALKALINE PHOSPHATASE 37 U/L (35-104); ALT/SGPT < 9 U/L (7.0-40); AST/SGOT 10 U/L (<34); BILIRUBIN,TOTAL 0.5 MG/DL (0.3-1.2); BLOOD UREA NITROGEN 15 MG/DL (9-23); CALCIUM LEVEL 9.1 MG/DL (8.5-10.1); CARBON DIOXIDE LEVEL 27 MMOL/L (20-31); CHLORIDE LEVEL 105 MMOL/L (98-107); CREATININE FOR GFR 0.61 MG/DL (0.55-1.30); GLOMERULAR FILTRATION RATE > 60.0 (>60); GLUCOSE, FASTING 84 MG/DL (60-100); HCG, SERUM QUANTITATIVE 660.6 MIU/ML (<4.2); POTASSIUM SERUM 4.2 MMOL/L (3.5-5.1); SODIUM LEVEL 141 MMOL/L (136-145); TOTAL PROTEIN 7.1 G/DL (5.7-8.2)
[2024-10-05 18:21] LABS: HCG, SERUM QUALITATIVE POSITIVE (NEGATIVE)
== END ==
LOC: M SFHCCLAY 10:33
PROVIDERS: ATTEND Nurse Practitioner Family
DX: Z00.00 Encounter for general adult medical examination without abnormal findings (principal); Z32.01 Encounter for pregnancy test, result positive

== ENCOUNTER → 2024-11-05 | Outpatient (CLI) | payer BC ==
[2024-11-05 15:31] LABS: HEMATOCRIT 36.2 % (36.0-47.0); HEMOGLOBIN 12.1 g/dl (12.0-15.5); MEAN CORPUSCULAR HEMOGLOBIN 29.4 pg (27.0-33.0); MEAN CORPUSCULAR HGB CONC 33.4 g/dl (32.0-36.5); MEAN CORPUSCULAR VOLUME 88.1 fl (80.0-96.0); PLATELET COUNT, AUTOMATED 248 10^3/uL (150-450); RED BLOOD COUNT 4.11 10^6/uL (4.00-5.40); WHITE BLOOD COUNT 7.4 10^3/uL (4.0-10.0)
[2024-11-05 16:22] LABS: HIV 1&2 SCREEN NEGATIVE (NEGATIVE)
[2024-11-05 16:30] LABS: HEPATITIS C VIRUS ABY INDEX 0.03 INDEX (<0.8)
[2024-11-05 17:11] LABS: Trichomonas vaginalis (AMP) NOT DETECTED (NEGATIVE)
[2024-11-05 17:34] LABS: GC DNA AMPLIFICATION NEGATIVE (NEGATIVE)
== END ==
LOC: M PLALAB 13:33
PROVIDERS: ATTEND Advanced Practice Midwife
DX: Z34.81 Encounter for supervision of other normal pregnancy, first trimester (principal)

== ENCOUNTER → 2024-11-16 | Outpatient (CLI) | payer BC | LOC: M LAB 10:54 | PROVIDERS: ATTEND Advanced Practice Midwife | DX: Z34.80 Encounter for supervision of other normal pregnancy, unspecified trimester (principal) ==

== ENCOUNTER → 2024-12-31 | Outpatient (CLI) | payer BC | LOC: M PLALAB 11:24 | PROVIDERS: ATTEND Advanced Practice Midwife | DX: O99.342 Other mental disorders complicating pregnancy, second trimester (principal) ==

== ENCOUNTER → 2025-01-18 | Outpatient (CLI) | payer BC | LOC: M RAD 08:36 | PROVIDERS: ATTEND Advanced Practice Midwife | DX: O99.341 Other mental disorders complicating pregnancy, first trimester (principal) ==

== ENCOUNTER → 2025-03-25 | Outpatient (CLI) | payer BC ==
[2025-03-25 13:51] LABS: PLATELET COUNT, AUTOMATED 193 10^3/uL (150-450)
[2025-03-25 13:56] LABS: GLUCOSE CHALLENGE TEST 1 HOUR 99 MG/DL (LESS THAN 140)
[2025-03-25 14:25] LABS: HIV 1&2 SCREEN NEGATIVE (NEGATIVE)
[2025-03-25 14:33] LABS: HEPATITIS C VIRUS ABY INDEX < 0.02 INDEX (<0.8)
== END ==
LOC: M PLALAB 09:57
PROVIDERS: ATTEND Advanced Practice Midwife
DX: O99.342 Other mental disorders complicating pregnancy, second trimester (principal)

== ENCOUNTER → 2025-05-20 | Outpatient (REF) | payer BC ==
[~2025-05-20] MED LIST changes: -IBUP-1022 PO; +IBUP600T42 PO
== END ==
LOC: M SFHCWAGY 12:52
PROVIDERS: ATTEND Advanced Practice Midwife
DX: O99.343 Other mental disorders complicating pregnancy, third trimester (principal)

== ENCOUNTER 2025-06-03 15:16 | Inpatient (IN) | payer BC ==
[~2025-06-03] VITALS: Ht 152.4 cm; Wt 76.8 kg
[2025-06-03] VITALS (37 sets, daily range): BP systolic 90–131; BP diastolic 53–86
[2025-06-03] MEDS ORDERED: HOME MED LIST COMPLETE! XX SCH (15:30)
[2025-06-03 16:04] LABS: PLATELET COUNT, AUTOMATED 156 10^3/uL (150-450)
[2025-06-03] MEDS ORDERED: OXYTOCIN INJ 10UNITS/ML 1ML VIAL IM PRN (16:20)
[2025-06-03] MEDS ORDERED: LIDOCAINE 1% MDV 20 ML VIAL INFIL PRN (16:20)
[2025-06-03] MEDS ORDERED: CARBOPROST TROMETHAMINE 250 MCG/ML AMP IM PRN (16:20)
[2025-06-03 17:05] LABS: HIV 1&2 SCREEN NEGATIVE (NEGATIVE)
[2025-06-03 17:13] LABS: HEPATITIS C VIRUS ABY INDEX < 0.02 INDEX (<0.8)
[2025-06-03] MEDS ORDERED: LR 500 ML IV PRN (18:40)
[2025-06-03] MEDS ORDERED: diphenhydrAMINE 50 MG/ML VIAL IV PRN (18:40)
[2025-06-03] MEDS ORDERED: NALOXONE INJ 0.4 MG/1 ML VIAL IV PRN (18:40)
[2025-06-03] MEDS ORDERED: FENTANYL 2 MCG/ML ROPIVACAINE 0.2% IN 0.9% NACL 100 ML IVBAG As Ordered ONE (18:40)
[2025-06-03] MEDS ORDERED: ONDANSETRON 4MG 2ML VIAL IV PRN (18:40)
[2025-06-03] MEDS ORDERED: EPIDURAL/PCA KEYS XX PRN (18:40)
[2025-06-03] MEDS: LACTATED RINGER'S 1000 ML IV STA (18:46)
[2025-06-03] MEDS: FENTANYL/ROPIVACAINE/NACL BAG 100 ML EPIDURAL SCH (19:20)
[2025-06-03] MEDS ORDERED: OXYTOCIN DRIP 30 UNITS in IV 1 EA IV SCH (20:10)
[2025-06-03] MEDS: ACETAMINOPHEN *IV* 1,000 MG in IV 1 EA IV ONE (21:00)
[2025-06-03] MEDS: LR 1,000 ML IV SCH (22:38)
[2025-06-03] MEDS: METHYLERGONOVINE MALEATE 0.2 MG/ML 1 ML VIAL IM PRN (23:15)
[2025-06-03] MEDS: OXYTOCIN DRIP 30 UNITS in IV 1 EA IV PRN (23:15)
[2025-06-03] MEDS: TRANEXAMIC ACID INJection 1,000 MG in NS 100 ML IV PRN (23:15)
[2025-06-03] MEDS ORDERED: IBUPROFEN 600 MG TAB PO PRN (23:40)
[2025-06-03] MEDS ORDERED: DIBUCAINE 1% OINTMENT 30 GM TOP PRN (23:40)
[2025-06-03] MEDS ORDERED: MOM 30 ML SUSPENSION UDC PO PRN (23:40)
[2025-06-03] MEDS ORDERED: ANUSOL HC CREAM 30 GM TOP PRN (23:40)
[2025-06-03] MEDS ORDERED: ACETAMINOPHEN 325 MG TAB PO PRN (23:40)
[2025-06-03] MEDS ORDERED: RHOGAM 300MCG (1500IU) INJ IM SCH (23:40)
[2025-06-03] MEDS: IBUPROFEN 800 MG TAB PO PRN (23:48)
[2025-06-04 00:03] VITALS: BP 105/59
[2025-06-04 00:18] VITALS: BP 105/64
[2025-06-04 01:30] VITALS: BP 112/66; O2SAT 99
[2025-06-04 06:10] VITALS: BP 117/49; O2SAT 99
[2025-06-04] MEDS: ACETAMINOPHEN 500 MG TAB PO PRN (06:10)
[2025-06-04] MEDS: PRENATAL VITAMINS CHEWABLE TABLET PO SCH (08:18)
[2025-06-04] MEDS ORDERED: FLUZONE VACCINE TRI PF(25-26) 0.5ML SYRINGE IM.IMMUN ONE (09:00)
[2025-06-04 18:00] VITALS: BP 110/62; O2SAT 98
[2025-06-05 06:06] VITALS: BP 95/51; O2SAT 99
[2025-06-05] MEDS: MEASLES,MUMPS,RUBELLA VACCINE INJ (MMR-II) SC.IMMUN ONE (09:00)
[2025-06-05] MEDS: DOCUSATE SODIUM 100 MG CAPSULE PO PRN (10:34)
[2025-06-05] MEDS ORDERED: ACET-683 PO (11:11)
[2025-06-05] MEDS ORDERED: IBUP80TA PO (11:11)
[2025-06-05] MEDS: FLUZONE VACCINE TRI PF(25-26) 0.5ML SYRINGE IM.IMMUN ONE (11:57)
== END 2025-06-05 10:45 | disposition home or self-care (01) | DRG 560 ==
LOC: M LDI 15:16 → M OBS 06-04 01:12
PROVIDERS: ADMIT Advanced Practice Midwife; ATTEND Advanced Practice Midwife
PROC: 10E0XZZ Delivery of Products of Conception, External Approach (ICD-10-PCS; principal; 2025-06-03)
PROC: 0HQ9XZZ Repair Perineum Skin, External Approach (ICD-10-PCS; 2025-06-03)
PROC: 10907ZC Drainage of Amniotic Fluid, Therapeutic from Products of Conception, Via Natural or Artificial Opening (ICD-10-PCS; 2025-06-03)
DX: O70.0 First degree perineal laceration during delivery (principal); Z37.0 Single live birth; Z3A.38 38 weeks gestation of pregnancy